=== PATIENT | male | born 1955 | race Caucasian/White ===

== ENCOUNTER → 2023-09-23 06:50 | Outpatient (REF) | payer OTHER, SELFPAY | LOC: HWRAD 06:50 | PROVIDERS: ATTENDING PHYSICIAN Internal Medicine Cardiovascular Disease; FAMILY PHYSICIAN Family Medicine | DX: Z87.891 Personal history of nicotine dependence (principal); I25.10 Atherosclerotic heart disease of native coronary artery without angina pectoris | CPT/HCPCS: 71271 ==

== ENCOUNTER → 2023-12-24 06:31 | Outpatient (REF) | payer OTHER, SELFPAY | LOC: RAD 06:31 | PROVIDERS: ATTENDING PHYSICIAN Internal Medicine; FAMILY PHYSICIAN Family Medicine | DX: R91.8 Other nonspecific abnormal finding of lung field (principal) | CPT/HCPCS: 71250 ==

== ENCOUNTER 2024-04-01 05:00 | Emergency (ER) | payer OTHER, SELFPAY ==
[2024-04-01 05:01] VITALS: BMI 25.5
[2024-04-01 05:02] VITALS: BP 138/81
--- NOTE | 2024-04-01 06:03 | ED.GENMED ---
History of Present Illness
<Lashae Rankin MD, Resident - Last Filed: 04/01/24 07:02>
General
Chief Complaint: Skin Surface Trauma
Source: patient
Time Seen by Provider: 04/01/24 05:48
History of Present Illness
History of Present Illness:
68 M with history of HTN and CAD who presents to the ED with pain in R middle finger. He had a 0.5 inch splinter at the same site - palmar surface while lifting some wood 4 days ago. He removed the splinter but has noted some erythema and mild
tenderness, with feeling of residual foreign body under the skin, and mild paraesthesia on dorsal surface of middle phalanx. He denies fever or malaise.
Past History
<Lashae Rankin MD, Resident - Last Filed: 04/01/24 07:02>
Past History
ED Past Medical History: CAD and HTN
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
Social History
Tobacco: Former smoker (quit 15 years ago)
Alcohol: Occasional
Drug: None
Review of Systems
<Lashae Rankin MD, Resident - Last Filed: 04/01/24 07:02>
Review of Systems
Allergies reviewed?: Yes
All Other Systems: ROS reviewed and negative except as documented in HPI and ROS
Phy Exam
<Lashae Rankin MD, Resident - Last Filed: 04/01/24 07:02>
Physical Exam
Physical Exam:
General: no acute distress.
Heart: RRR, no murmur or rubs
Lung: Clear to auscultation bilaterally
Musculoskeletal: small palpable mass onn palmar surface of middle finger, mild erythema and mild localized swelling.
Neuro: Sensation and motor strength of R middle finger preserved.
Course
<Lashae Rankin MD, Resident - Last Filed: 04/01/24 07:02>
Orders/Labs/Results
Orders:
Orders
04/01/24 06:35
Tetanus/Diphth/Acelpertussis [Adacel] 0.5 ml IM .ONCE ONE
Vital Signs
Initial and Last Documented VS:
Initial Vital Signs
Temp Pulse Resp BP Pulse Ox
98.2 F 60 18 138/81 96
04/01/24 05:02 04/01/24 05:02 04/01/24 05:02 04/01/24 05:02 04/01/24 05:02
Last Documented Vital Signs
Temp Pulse Resp BP Pulse Ox
98.2 F 60 18 138/81 96
04/01/24 05:02 04/01/24 05:02 04/01/24 05:02 04/01/24 05:02 04/01/24 05:02
<Angelo Berrios, DO - Last Filed: 04/01/24 06:37>
Orders/Labs/Results
Orders:
Orders
04/01/24 06:35
Tetanus/Diphth/Acelpertussis [Adacel] 0.5 ml IM .ONCE ONE
Vital Signs
Initial and Last Documented VS:
Initial Vital Signs
Temp Pulse Resp BP Pulse Ox
98.2 F 60 18 138/81 96
04/01/24 05:02 04/01/24 05:02 04/01/24 05:02 04/01/24 05:02 04/01/24 05:02
Last Documented Vital Signs
Temp Pulse Resp BP Pulse Ox
98.2 F 60 18 138/81 96
04/01/24 05:02 04/01/24 05:02 04/01/24 05:02 04/01/24 05:02 04/01/24 05:02
Procedures
<Lashae Rankin MD, Resident - Last Filed: 04/01/24 07:02>
Foreign Body Removal-Skin
Wound explored and foreign body removed?: Yes
Anesthesia: 1% lidocaine (digital block)
Foreign body removed using: incision
Foreign body removed: completely (0.5 inch splinter removed. No visually appreciable foreign body left in wound)
<Angelo Berrios, DO - Last Filed: 04/01/24 06:37>
Digital Block
Location of injection for digital block: base of digit
Indiction for Digital Block: surgical repair
Was sensory exam normal prior to exam?: not tested
Type of anesthesia: 1% Lidocaine w/o EPI
Complications: none- good anesthesia
<Lashae Rankin MD, Resident - Last Filed: 04/01/24 07:02>
MDM/Problems Addressed
Differential Diagnosis Includes:
Splinter injury
MDM/Problems Addressed:
Palpable mass on exam, notable tenting with palpation. Will administer digital nerve block with lidocaine without epinephrine, incise and extract splinter. Procedure explained to patient and he is in agreement and consents to procedure. No TDAP
vaccine within past 10 years - will give in ED.
Foreign body extracted completely. No visually appreciable foreign body left in wound. Pt tolerated procedure well. No purulent collection. No indication for abx at this time. Will discharge to home.
<Lashae Rankin MD, Resident - Last Filed: 04/01/24 07:02>
*Critical Care Note
Total Time (30-74mins, 75-104mins- exclusive of procedures): Not Applicable
ED Attending Note
<Lashae Rankin MD, Resident - Last Filed: 04/01/24 07:02>
-
Portions of this chart may have been created with voice recognition software.� Occasional wrong word or��sound alike� substitutions may have occurred due to the inherent limitations of voice recognition software.
<Angelo Berrios DO - Last Filed: 04/01/24 06:37>
ED Attending Note
Patient seen and examined by attending physician: Yes
I performed the substantive portion of visit, reviewed & personally made and approve the management plan that is documented in note by myself or AMBIKA.: Yes
ED Attending Note:
Seen with resident examined independently splinter foreign body in the middle finger on the right plan we digital block attempted excision
Discharge Plan
Departure
Patient Disposition: Home (Routine Discharge)
Date of Disposition: 04/01/24
Time of Disposition: 06:54
Patient with high blood pressure during this ER visit?: Yes
Condition: Good
Discharge Problem:
Splinter in skin
Instructions: Foreign Body in Skin ED
Referrals:
Sobeida Riley MD [Family Provider] -
Interventions
Interventions:
*Risk Screen - Suicide Last Done: 04/01/24 05:02
*General Assessment Last Done: 04/01/24 05:39
*Neglect/Abuse Screening Last Done: 04/01/24 05:02
*ED COVID-19 Vaccine History Last Done: 04/01/24 05:02
ED-Skin Assessment Last Done: 04/01/24 05:37
Discharge Date and Time
Print Language: MALDIVIAN
[2024-04-01] MEDS: ADACEL 0.5 ML IM (06:54)
[2024-04-01 07:07] VITALS: BP 119/58
== END 2024-04-01 07:09 | disposition home or self-care (01) ==
LOC: EMR 05:00
PROVIDERS: EMERGENCY PHYSICIAN Emergency Medicine; FAMILY PHYSICIAN Family Medicine
DX: S60.452A Superficial foreign body of right middle finger, initial encounter (principal); R20.2 Paresthesia of skin; L53.9 Erythematous condition, unspecified; M79.89 Other specified soft tissue disorders; X58.XXXA Exposure to other specified factors, initial encounter; Z23 Encounter for immunization; I10 Essential (primary) hypertension; I25.10 Atherosclerotic heart disease of native coronary artery without angina pectoris; Z87.891 Personal history of nicotine dependence; Z89.022 Acquired absence of left finger(s)
CPT/HCPCS: 64450; 99284; 10120; 90471; 90715